=== PATIENT | female | born 1950 | race Caucasian/White ===

== ENCOUNTER 2019-01-14 13:57 | Emergency (ER) | payer MEDICARE, OTHER ==
[~2019-01-14] VITALS: Ht 152.4 cm; Wt 72.6 kg
[2019-01-14 14:40] VITALS: BP 142/62
[2019-01-14] MEDS ORDERED: KETOROLAC TROMETH 30 MG/ML 1ML VIAL IM ONE (15:00)
[2019-01-14] MEDS ORDERED: diphenhdrAMINE HCL 25 MG CAP PO ONE (15:00)
[2019-01-14] MEDS ORDERED: PROMETHAZINE HCL 25 MG/ML 1ML IM ONE (15:00)
[2019-01-14 15:39] LABS: Basophils # (auto) 0 uL; Basophils % (auto) 0.1 % (0.0-2.0); Eosinophils # (auto) 0.3 uL; Eosinophils % (auto) 1.6 % (0.0-7.0); Hematocrit 41.7 % (36.0-46.0); Hemoglobin 13.7 g/dL (12.2-16.2); Lymphocytes # (auto) 1.1 uL; Lymphocytes % (auto) 6.6 % (10.0-50.0); Mean Corpuscular Hemoglobin 29.6 pg (28.0-32.0); Mean Corpuscular Volume 89.8 fL (80.0-100.0); Monocytes # (auto) 0.7 uL; Neutrophils # (auto) 14.9 uL; Neutrophils % (auto) 87.7 % (37.0-80.0); Platelet Count (auto) 154 10^3/uL (140-450); Red Blood Cells 4.65 10^6/uL (4.0-5.20); Red Cell Distribution Width 14.9 % (11.8-14.3)
== END 2019-01-14 16:15 | disposition home or self-care (01) ==
LOC: ER 14:03
DX: R51 Headache (principal); I10 Essential (primary) hypertension
CPT/HCPCS: 36415; 81002; 85025; 96372; 99283; J1885; J2550